=== PATIENT | male | born 1970 | race Caucasian/White ===

== ENCOUNTER 2019-02-15 18:48 | Emergency (ER) | payer BC ==
[~2019-02-15 18:48] MED LIST: CLONAZEPAM2 MG PO; KEPPRA1000 MG PO; TEGRETOL100 MG PO; ZANTAC 7575 MG PO
[2019-02-15] MEDS ORDERED: LEVETIRACETAM750 MG PO (18:56)
[2019-02-15] MEDS ORDERED: VITAMIN D50000 UNIT PO (18:58)
[2019-02-15] MEDS ORDERED: CARBAMAZEPINE100 MG PO (18:58)
[2019-02-15] MEDS ORDERED: TECFIDERA240 MG PO (18:59)
[2019-02-15 20:52] LABS: EOS # 0.1 (0.04-0.40); EOS % 1.1 % (0.0-4.0); HEMATOCRIT 37.6 % (42.0-52.0); HEMOGLOBIN 12.6 g/dL (13.5-18.0); LYMPH# 1.1 (1.50-4.00); MEAN CELL VOLUME 87 fl (78-100); MEAN CORPUSCULAR HEMOGLOBIN 29 pg (27-31); MEAN CORPUSCULAR HGB CONC 34 g/dL (33-37); MEAN PLATELET VOLUME 8.9 fl (7.4-10.4); MONO # 0.7 (0.20-0.80); NEU # 7.2 (1.40-6.50); PLATELET COUNT 366 K/mm3 (130-400); RED BLOOD COUNT 4.31 M/mm3 (4.20-5.60); RED CELL DISTRIBUTION WIDTH 12.4 % (11.5-14.5); WHITE BLOOD COUNT 9.2 K/mm3 (4.8-10.8)
[2019-02-15 21:07] LABS: ALBUMIN 4.2 g/dL (3.5-5.0)
[2019-02-15 21:08] LABS: POTASSIUM 3.6 mmol/L (3.5-5.1)
[2019-02-15 21:09] LABS: CALCIUM 8.8 mg/dL (8.3-10.5)
[2019-02-15 21:10] LABS: TOTAL PROTEIN 7.2 g/dL (6.4-8.3)
[2019-02-15 21:12] LABS: TOTAL BILIRUBIN 0.2 mg/dL (0.2-1.2)
[2019-02-15] MEDS ORDERED: KEPPRA750 M1 PO ×2 (21:40→21:41)
[2019-02-15 21:48] VITALS: BP 128/81
[2019-02-17 23:16] LABS: LEVETIRACETAM (KEPPRA) 7 ug/mL (())
== END 2019-02-15 21:48 | disposition home or self-care (01) ==
LOC: ED 18:48
PROVIDERS: Family Medicine
DX: G40.909 Epilepsy, unspecified, not intractable, without status epilepticus (principal); Z98.890 Other specified postprocedural states